=== PATIENT | female | born 1985 | race Caucasian/White ===

== ENCOUNTER 2023-04-09 01:05 | Emergency (ER) | payer BC, SELFPAY ==
--- NOTE | ~2023-04-09 | XR_ITS ---
EXAMINATION: XR CHEST CLINICAL INFORMATION: Cough. COMPARISON: None available. TECHNIQUE: 2 views of the chest were obtained. FINDINGS: No significant abnormality is noted involving the heart, lungs, mediastinum, bony thorax or soft tissues. XR/XR chest 2V IMPRESSION: Unremarkable examination.
[2023-04-09 01:09] VITALS: BP 147/90; PULSE 77; RESP 16; TEMP 36.7; O2SAT 96; BMI 51.7
[2023-04-09 01:42] VITALS: O2SAT 97
--- NOTE | 2023-04-09 01:46 | ED_ITS ---
HPI - URI/Sore Throat General Chief Complaint: Upper Respiratory Symptoms Stated Complaint: Back Pain Time Seen by Provider: 04/09/23 01:42 Source: patient Mode of arrival: ambulatory Limitations: no limitations History of Present Illness HPI Narrative: Patient comes to the emergency room complaining of URI symptoms for about a month. Patient states that she recently finished taking a course of prednisone, amoxicillin and a Z-Bernabe. Patient is still coughing. Patient reports that she heard a popping noise in the back on their right. Patient complaining of localized pain. Related Data Previous Rx's Medication Instructions Recorded codeine 10 mg-guaifenesin 100 mg/5 5 ml PO Q6H #118 mL 04/09/23 mL oral liquid Allergies Allergy/AdvReac Type Severity Reaction Status Date / Time prednisone AdvReac Difficulty Verified 04/09/23 01:26 Breathing Review of Systems Review of Systems: Constitutional : No Weight loss, No Fever, No Chills, No Night Sweats, No Fatigue, No Malaise ENT/Mouth : No Hearing loss, No Ear Pain, No Nasal Congestion, No Sinus Pain, No Hoarseness, No sore throat, No Rhinorrhea, No Swallowing Difficulty Eyes: No Eye Pain, No Swelling, No Redness, No Foreign Body, No Discharge, No Vision Changes Cardiovascular : No Chest Pain, No SOB, No Dyspnea on Exertion, No Orthopnea, No Edema, No Palpitations Respiratory : Complaining of chronic cough, no wheezing, complaining of rib pain from coughing Gastrointestinal : No Nausea, No Vomiting, No Diarrhea, No Constipation, No abdominal Pain, No Hematochezia, No Melena Genitourinary : no irregular bleeding, No Dysuria, No Urinary Frequency, No Hematuria, No Urinary Incontinence, No Urgency, No Flank Pain, No Urinary Flow Changes, No Hesitancy Musculoskeletal : No joint pain, No Myalgias, No Joint Swelling Skin : No Skin Lesions, No rash Neuro : No Weakness, No Numbness, No Paresthesias, No Loss of Consciousness, No Dizziness, No Headache Psych : No Anxiety/Panic, No Depression, No SI/HI/AH/VH, No Social Issues, Heme/Lymph: No Bruising, No Bleeding,No Lymphadenopathy Endocrine : No Polyuria, No Polydipsia, No Temperature Intolerance PMFSH Social History Social History Smoked in Last 30 Days: No Physical Exam Vital Signs: Vital Signs: Last Vital Signs Temp 98.0 F 04/09/23 01:09 Pulse 77 04/09/23 01:09 Resp 16 04/09/23 01:09 BP 147/90 H 04/09/23 01:09 Pulse Ox 97 04/09/23 01:42 O2 Del Method Room Air 04/09/23 01:42 BMI result Body Mass Index 51.7 Const: Other: Appearance: Alert. Oriented X3. No acute distress. Eyes: Pupils equal, round and reactive to light. ENT: Pharynx normal. Neck: Normal inspection. Neck supple. No lymph nodes noted. No crepitus CVS: Normal heart rate and rhythm. Pulses normal. Normal S1 and S2 Respiratory: No respiratory distress. Breath sounds normal. No Wheezing. No rales Abdomen: Soft and nontender. No rigidity. No distention. Skin: Skin warm and dry. Normal skin color. Normal skin turgor. Extremities: No lower extremity edema. No Lacerations. No Rash Neuro: Oriented X 3. No motor deficit. No sensory deficit. Moving all extremities. No slurred speech. CN 2 through 12 grossly intact Psych: calm, cooperative, normal affect Medical Decision Making Medical Decision Making [facility] [place] Narrative: -all of patient's labs pending -vitals stable -my interpretation of chest x-ray: No acute abnormality, no infiltrates -discussed with the patient that the cough/bronchitis may last up to 10 weeks. Symptoms gradually improving. -this time, antibiotics or steroids are not indicated -on physical exam as mentioned above, clear lung sounds, no wheezing, oxygen saturation 98% on room air -my interpretation of labs: Negative for COVID and flu -discussed with the patient that she likely has bronchitis. Differential Diagnosis Differential Diagnoses: The differential diagnosis associated with the presentation includes (COVID, influenza, RSV, bronchitis) Lab Data [facility] [place] Lab Attestation statement: I reviewed the patient's lab results. Labs: Lab Results 04/09/23 Range/Units 01:39 COVID-19 ([facility]) Negative (Negative) COVID-19 Clin Com See Note Influenza Type A ([facility]) Negative (Negative) Influenza Type B ([facility]U) Negative (Negative) Influenza A & B Note See Note Independent Interpretation I performed an independent interpretation of an: Plain X-Ray Radiology Impression Discussion of test interpretation with radiology: I have reviewed the radiologist's reading. Radiologist Impression: No significant abnormality is noted involving the heart, lungs, mediastinum, bony thorax or soft tissues. XR/XR chest 2V IMPRESSION: Unremarkable examination. Discharge Plan Discharge Clinical Impression: Bronchitis Patient Disposition: Home, Self-Care Instructions: Acute Bronchitis (ED) Additional Instructions: Please follow-up with your primary care physician tomorrow. If you have any worsening or new symptoms, please return to the emergency room or call 911 Prescriptions: New codeine-guaifenesin 10-100 mg/5 mL liquid 5 ml PO Q6H Qty: 118 0RF
[2023-04-09 01:58] LABS: IDNOW Serial# 08D9AD1C; Influenza A Negative (Negative); Influenza B2 Negative (Negative)
[2023-04-09 01:59] LABS: COVID-19 Test Negative (Negative); IDNOW Serial# 152EDE1D
--- OUTSIDE RECORDS SUMMARY | 2023-04-09 02:27 | XMS_ITS | Continuity of Care Document ---
Author Name Unknown Organization [facility] Address [address] [place] [address]- Care Team Providers Care Perinatal Coordinator Name Role Phone Virgie Phill LEMUS Kathryn Primary Care Dora ramey Encounter [facility] [place] Date(s): 06/10/20 - 07/10/20 [facility] [address] [place] [address]- Allergies, Adverse Reactions, Alerts Substance Reaction Severity Status NKA Active Medications Probiotic Formula (Bacillus Coagulans) oral capsule 1 capsule, By Mouth, Daily at bedtime, # 30 capsule, 0 Refills, Maintenance, 03/26/20 13:34:00 EST,Capsule, Partial fill upon patient request if the prescription is for a schedule II opioid drug. Start Date: 03/26/20 Status: Ordered Giovanna 3 mg-0.02 mg oral tablet 1 tablet, By Mouth, Daily at bedtime, # 28 tablet, 0 Refills, Maintenance, 03/26/20 13:34:00 EST, Tablet, Partial fill upon patient request if the prescription is for a schedule II opioid drug. Start Date: 03/26/20 Status: Ordered ZyrTEC 10 mg oral tablet 1 tablet = 10 mg, By Mouth, Daily in AM, 0 Refills, Maintenance, 03/26/20 13:34:00 EST, Partial fill upon patient request if the prescription is for a schedule II opioid drug. Start Date: 03/26/20 Status: Ordered Problem List Condition Effective Dates Status Health Status Inform ant Acid reflux(Confirmed) Active IBS (irritable bowel syndrome)(Confirmed) Active PCOS (polycystic ovarian syndrome)(Confirmed) Active Gestational [-induc ed] hypertension without significant proteinuria, complicating childbirth(Confirmed) Active Social History Social History Type Response Smoking Status Unknown if ever smok ed; Tobacco user in household: No entered on: 08/28/16 Sex
--- OUTSIDE RECORDS SUMMARY | 2023-04-09 02:28 | XMS_ITS | Continuity of Care Document ---
Author Name Unknown Organization [facility] ter Address [address] [place] [id number]- Care Team Providers Care Water Taxi Operator Name Role Phone Virgie Phill LEMUS Kathryn Primary Care Dora ramey Encounter [facility] [place] Date(s): 04/02/20 - 04/02/[address] [address] Discharge Disposition: A-D/C Home Attending Physician: Chan Arriaga MD Admitting Physician: Chan Arriaga MD Referring Physician: Chan Arriaga MD Allergies, Adverse Reactions, Alerts Substance Reaction Severity Status NKA Active Medications OxyCODONE IR Tablet 5 mg, Tablet, By Mouth, Every 4 hours, in PACU ONLY, if patient can tolerate PO, PRN for Pain , Mild, Routine, 04/02/20 10:55:00 EST Start Date: 04/02/20 Stop Date: 04/02/20 Status: Discontinued Probiotic Formula (Bacillus Coagulans) oral capsule 1 [...] hypertension without significant proteinuria, complicating childbirth(Confirmed) Active Vital Signs Most recent to oldest [Reference Range]: 1 2 3 Height 162.56 cm (04/02/20 9:28 AM) 162.56 cm (03/26/20 1:31 PM) Weight 126 kg (04/02/20 9:28 AM) 123.18 kg (03/26/20 1:31 PM) Oxygen Saturation [94-100 %] 99 % (04/02/20 12:00 PM) 98 % (04/02/20 11:45 AM) 98 % (04/02/20 11:30 AM) Pulse Rate [55-90 bpm] 84 bpm (04/02/20 9:28 AM) Body Mass Index [18.5-24.99] 47.68 *>HHI* (04/02/20 9:28 AM) 46.61 *>HHI* (03/26/20 1:31 PM) Blood Pressure [90-138/55-84 mm Hg] 117/81mm Hg (04/02/20 12:00 PM) 120/66mm Hg (04/02/20 11:45 AM) 130/81mm Hg (04/02/20 11:30 AM) Respiratory Rate [16-30 br/min] 14 br/min *L* (04/02/20 12:18 PM) 16 br/min (04/02/20 12:00 PM) 20 br/min (04/02/20 11:45 AM) Temperature [96.8-100.4 DegF] 98.4 DegF (04/02/20 12:00 PM) 97.6 DegF (04/02/20 11:15 AM) 98.4 DegF (04/02/20 9:28 AM) Liters per Minute 4 L/min (04/02/20 11:15 AM) Mode of Delivery (Oxygen) Room air (04/02/20 1:00 PM) Room air (04/02/20 12:00 PM) Room air (04/02/20 11:45 AM) Blood pressure sites Arm, right (04/02/20 12:00 PM) Arm, right (04/02/20 11:45 AM) Arm, right (04/02/20 11:30 AM) Temperature Route Temporal (04/02/20 11:15 AM) Temporal (04/02/20 9:28 AM) Dry Weight 123.18 kg (03/26/20 1:31 PM) Weight Obtained Via Patient/family state d (03/26/20 1:31 PM) Dry Weight Obtained Via Patient/family s tated (03/26/20 1:31 PM) Social History Social History Type Response Smoking Status Unknown if ever smok ed; Tobacco user in household: No entered on: 08/28/16 Sex
== END 2023-04-09 02:32 | disposition home or self-care (01) ==
LOC: HO.ED 02:27
PROVIDERS: Emergency Provider Emergency Medicine; PCP Physician Assistant Medical
DX: J06.9 Acute upper respiratory infection, unspecified (principal); R05.9 Cough, unspecified; Z11.52 Encounter for screening for COVID-19
CPT/HCPCS: 71046; 87502; 87635; 99283; 99284